=== PATIENT | female | born 1995 | race Hispanic/Latino ===

== ENCOUNTER 2023-06-04 23:26 | Emergency (ER) | payer OTHER ==
[~2023-06-04] VITALS: Ht 154.9 cm; Wt 92.7 kg
[2023-06-04 23:59] LABS: CREATININE 0.8 mg/dL (0.5-1.5); POTASSIUM 3.7 mmol/L (3.5-5.1)
[2023-06-05] LABS: APPEARANCE,URINE CLOUDY (CLEAR); BILIRUBIN,URINE NEGATIVE (NEGATIVE); COLOR,URINE LIGHT-YELLOW (YELLOW); GLUCOSE, URINE (UA) NEGATIVE (NEGATIVE); KETONES,URINE NEGATIVE (NEGATIVE); LEUKOCYTE ESTERASE ,URINE 500 Leu/uL (NEGATIVE); NITRATE,URINE NEGATIVE (NEGATIVE); OCCULT BLOOD,URINE NEGATIVE (NEGATIVE); PROTEIN,URINE NEGATIVE (NEGATIVE); UROBILINOGEN,URINE 0.2 mg/dL (0.2-1.0)
[2023-06-05] MEDS ORDERED: ONDANSETRON 4MG INJ IVP ONE
[2023-06-05] MEDS ORDERED: 0.9%NACL 1000ML 1,000 ML IV ONE
[2023-06-05 00:03] LABS: ADD UA MICROSCOPIC YES; HCG,QUALITATIVE URINE NEGATIVE (NEGATIVE)
[2023-06-05 00:03] LABS: ALBUMIN 3.6 g/dL (3.5-5.0); TOTAL PROTEIN, SERUM 8.3 g/dL (6.0-8.3)
[2023-06-05 00:06] LABS: BACTERIA,URINE MANY /HPF (None Seen); MUCUS,URINE RARE LPF (None Seen); SQUAMOUS EPITHELIAL CELL,UR MOD /HPF (0-2); WBC,URINE 26-50 /HPF (0-1)
[2023-06-05] MEDS ORDERED: IOHEXOL 350 MG/ML 100ML INFUS..BTL IV ONE (02:16)
[2023-06-05 03:21] LABS: BASOPHILS # (AUTO) 0.01 K/uL (0.00-0.20); BASOPHILS % (AUTO) 0.1 % (0.0-5.0); EOSINOPHILS # (AUTO) 0.02 K/uL (0.00-0.70); EOSINOPHILS % (AUTO) 0.2 % (0.0-8.0); IMMATURE GRANULOCYTE ABSOLUTE 0.03 K/uL (0-1); LYMPHOCYTES # (AUTO) 2.5 K/uL (1.0-4.8); LYMPHOCYTES % (AUTO) 29.3 % (21.0-51.0); MEAN CORPUSCULAR HEMOGLOBIN 26.4 pg (27.0-33.0); MEAN CORPUSCULAR HGB CONC 32.6 g/dL (32.0-36.0); MONOCYTES # (AUTO) 0.6 K/uL (0.1-1.0); MONOCYTES % (AUTO) 7.2 % (3.0-13.0); NEUTROPHILS # (AUTO) 5.4 K/uL (1.8-7.7); NEUTROPHILS % (AUTO) 62.8 % (40.0-77.0); PLATELET COUNT (AUTO) 272 K/uL (130-400); RED CELL DISTRIBUTION WIDTH 14.2 % (11.0-15.5); WHITE BLOOD COUNT (AUTO) 8.6 K/uL (4.8-10.8)
[2023-06-05] MEDS ORDERED: DICY10 PO (03:56)
[2023-06-05 04:03] VITALS: BP 104/62; PULSE 66; RESP 16; O2SAT 99
== END 2023-06-05 04:08 | disposition home or self-care (01) ==
LOC: EDH 23:26
DX: R10.9 Unspecified abdominal pain (principal); R11.2 Nausea with vomiting, unspecified; Z98.890 Other specified postprocedural states
CPT/HCPCS: 99285; 74177; 80053; 83690; 85025; 87040 ×2; 87088; 83605; 81001; 81025; 36415 ×2; 96374; J2405; Q9967

== ENCOUNTER 2023-08-03 11:27 | Emergency (ER) | payer OTHER ==
[~2023-08-03] VITALS: Ht 154.9 cm; Wt 93.0 kg
[~2023-08-03 11:27] MED LIST: DICY10 PO
[2023-08-03] MEDS ORDERED: TETANUS/DIPHTHERIA TOXOID [ADULT] 0.5 ML VIAL IM ONE (12:00)
[2023-08-03] MEDS ORDERED: IBUPROFEN 600 MG TABLET PO ONE (12:00)
[2023-08-03 12:12] VITALS: BP 122/64; PULSE 81; RESP 16; O2SAT 99
== END 2023-08-03 12:13 | disposition home or self-care (01) ==
LOC: EDH 11:27
DX: S60.456A Superficial foreign body of right little finger, initial encounter (principal); Z98.890 Other specified postprocedural states; X58.XXXA Exposure to other specified factors, initial encounter; Y93.89 Activity, other specified; Y92.89 Other specified places as the place of occurrence of the external cause; Y99.8 Other external cause status
CPT/HCPCS: 90471; 90714

== ENCOUNTER 2024-05-19 16:12 | Emergency (ER) | payer OTHER ==
[~2024-05-19] VITALS: Ht 154.9 cm; Wt 88.5 kg
[2024-05-19 16:15] VITALS: BP 140/79; PULSE 95; RESP 14
[2024-05-19 17:42] LABS: SARS-CoV-2, RNA, NAAT NEGATIVE SARS CoV-2 (NEGATIVE)
[2024-05-19 17:44] LABS: INFLUENZA TYPE A Negative For Type A (NEGATIVE); INFLUENZA TYPE B Negative For Type B (NEGATIVE)
[2024-05-19 17:48] LABS: RAPID GROUP A STREP positive (NEGATIVE)
[2024-05-19] MEDS ORDERED: AMOX500T2 PO (17:53)
[2024-05-19] MEDS ORDERED: CEFTRIAXONE 1G VIAL IVPB ONE (18:00)
[2024-05-19] MEDS ORDERED: CEFTRIAXONE 1G VIAL IM ONE (18:30)
== END 2024-05-19 18:12 | disposition home or self-care (01) ==
LOC: EDH 16:12
DX: J02.0 Streptococcal pharyngitis (principal); Z20.822 Contact with and (suspected) exposure to COVID-19; Z79.899 Other long term (current) drug therapy; Z98.890 Other specified postprocedural states
CPT/HCPCS: 87635; 87804; 87880; J0696